=== PATIENT | female | born 1990 | race Caucasian/White ===

== ENCOUNTER 2021-01-11 18:13 | Emergency (ER) | payer BC ==
[2021-01-11] MEDS ORDERED: Bacitracin Oint 1 GM U/D Packet TOP ONE ×2 (18:36→18:56)
[2021-01-11] MEDS ORDERED: Acetaminophen/HYDROcodone 325-5 MG Tab PO ONE (18:36)
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
== END 2021-01-11 19:19 | disposition home or self-care (01) ==
LOC: MW.ED 18:13
DX: T23.251A Burn of second degree of right palm, initial encounter (principal); X19.XXXA Contact with other heat and hot substances, initial encounter
CPT/HCPCS: 16020; 99283; A9270

== ENCOUNTER 2022-04-14 12:26 | Inpatient (IN) | payer BC ==
[2022-04-14] MEDS ORDERED: Misoprostol 200 MCG Tab PO PRN (15:52)
[2022-04-14] MEDS ORDERED: Tranexamic Acid 1,000 MG in Sodium Chloride 0.9% 100 ML IV PRN (15:52)
[2022-04-14] MEDS ORDERED: Sodium Chloride 0.9% 2.5 ML Syringe FLUSH PRN (15:52)
[2022-04-14] MEDS ORDERED: Lidocaine 1% 50 ML MDV INJECT PRN (15:52)
[2022-04-14] MEDS ORDERED: Water For Irrigation,Sterile 1,000 ML Container IRR PRN (15:52)
[2022-04-14] MEDS ORDERED: Sodium Chloride 0.9% 10 ML Syringe FLUSH PRN (15:52)
[2022-04-14] MEDS ORDERED: Sodium Chloride 0.9% 20 ML SDV IV PRN (15:52)
[2022-04-14] MEDS ORDERED: Butorphanol 1 MG/ML SDV IVPUSH PRN (15:52)
[2022-04-14] MEDS ORDERED: Methylergonovine 0.2 MG/1 ML Amp IM PRN (15:52)
[2022-04-14] MEDS ORDERED: Carboprost Tromethamine 250 MCG/1 ML Amp IM PRN (15:52)
[2022-04-14] MEDS ORDERED: Oxytocin/0.9 % Sodium Chloride 30 UNIT/500 ML BAG IV SCH ×2 (16:00→23:30)
[2022-04-14] MEDS ORDERED: ePHEDrine 50 MG/ML SDV IVPUSH PRN ×2 (16:41)
[2022-04-14] MEDS ORDERED: Ropivacaine HCl/PF 400 MG in Premix Bag 1 BAG EPIDUR SCH (16:45)
[2022-04-14] MEDS ORDERED: Phenylephrine HCl In 0.9% NaCl 1 MG/10 ML Vial IVPUSH SCH (16:45)
[2022-04-14] MEDS: Lactated Ringers 1,000 ML IV SCH ×3 (21:42→23:26)
[2022-04-14] MEDS ORDERED: Phenylephrine HCl In 0.9% NaCl 1 MG/10 ML Vial ONE (22:52)
[2022-04-14] MEDS: Phenylephrine HCl In 0.9% NaCl 1 MG/10 ML Vial IVPUSH SCH ×2 (23:17→23:31)
[2022-04-14] MEDS ORDERED: Terbutaline 1 MG/ML SDV SUBCUT PRN (23:28)
[2022-04-15] MEDS ORDERED: Acetaminophen 500 MG Tab PO ONE (01:18)
[2022-04-15] MEDS: Lactated Ringers 1,000 ML IV SCH (03:16)
[2022-04-15] MEDS ORDERED: Ondansetron 4 MG/2 ML SDV IVPUSH PRN ×4 (03:58→09:27)
[2022-04-15] MEDS ORDERED: Azithromycin 500 MG Vial ONE (07:57)
[2022-04-15] MEDS ORDERED: Oxytocin 10 Units/1 ML SDV ONE (08:11)
[2022-04-15] MEDS ORDERED: Ropivacaine 0.5% 5 MG/ML 30 ML SDV ONE (08:11)
[2022-04-15] MEDS ORDERED: Dexamethasone 4 MG/ML 5 ML MDV ONE (08:11)
[2022-04-15] MEDS ORDERED: Morphine PF 10 MG/10 ML SDV ONE (08:11)
[2022-04-15] MEDS ORDERED: Phenylephrine HCl In 0.9% NaCl 1 MG/10 ML Vial ONE (08:11)
[2022-04-15] MEDS ORDERED: Ondansetron 4 MG/2 ML SDV ONE (08:11)
[2022-04-15] MEDS ORDERED: Dexmedetomidine 200 MCG/2 ML SDV ONE (08:11)
[2022-04-15] MEDS ORDERED: ceFAZolin 1 GM Vial ONE (08:11)
[2022-04-15] MEDS ORDERED: methylPREDNISolone Sodium Succinate 40 MG/1 ML SDV ONE (08:26)
[2022-04-15] MEDS ORDERED: Lidocaine 2% 5 ML SDV ONE (08:27)
[2022-04-15] MEDS ORDERED: Ketorolac 30 MG/ML SDV ONE (08:39)
[2022-04-15] MEDS ORDERED: fentaNYL 50 MCG/ML SDV IVPUSH PRN ×2 (08:59)
[2022-04-15] MEDS ORDERED: HYDROmorphone 1 MG/ML Syringe IVPUSH PRN (08:59)
[2022-04-15] MEDS ORDERED: diphenhydrAMINE 50 MG/ML SDV IVPUSH PRN ×2 (08:59→09:27)
[2022-04-15] MEDS ORDERED: Albuterol 0.083% 2.5 MG/3 ML Neb Soln NEB PRN (08:59)
[2022-04-15] MEDS ORDERED: Metoclopramide 10 MG/2 ML SDV IVPUSH PRN (08:59)
[2022-04-15] MEDS ORDERED: Naloxone 0.4 MG/ML SDV IVPUSH PRN (08:59)
[2022-04-15] MEDS ORDERED: Acetaminophen/oxyCODONE 325-5 MG Tab PO PRN ×3 (08:59→09:27)
[2022-04-15] MEDS ORDERED: Morphine 2 MG/ML SYRINGE IVPUSH PRN (08:59)
[2022-04-15] MEDS ORDERED: Methylergonovine 0.2 MG/1 ML Amp IM PRN (09:27)
[2022-04-15] MEDS ORDERED: Lanolin 100% Cream 7 GM Tube TOP PRN (09:27)
[2022-04-15] MEDS ORDERED: Oxytocin 10 Units/1 ML SDV IM PRN (09:27)
[2022-04-15] MEDS ORDERED: Misoprostol 200 MCG Tab RECTAL PRN (09:27)
[2022-04-15] MEDS ORDERED: Tranexamic Acid 1,000 MG in Sodium Chloride 0.9% 100 ML IV PRN (09:27)
[2022-04-15] MEDS ORDERED: Bisacodyl 10 MG Supp RECTAL PRN (09:27)
[2022-04-15] MEDS ORDERED: Lactated Ringers 1,000 ML IV SCH (09:30)
[2022-04-15] MEDS ORDERED: Oxytocin/0.9 % Sodium Chloride 30 UNIT/500 ML BAG IV SCH (09:30)
[2022-04-15] MEDS ORDERED: Acetaminophen 1,000 MG in Premix Bag 1 BAG IV SCH (15:00)
[2022-04-15] MEDS: Ketorolac 30 MG/ML SDV IVPUSH SCH ×2 (16:16→22:15)
[2022-04-15] MEDS: Docusate Sodium 100 MG Cap PO SCH (22:21)
[2022-04-16] MEDS: Ketorolac 30 MG/ML SDV IVPUSH SCH ×3 (04:23→09:40)
[2022-04-16] MEDS: Levothyroxine 50 MCG Tab **OWN MED PO SCH (07:22)
[2022-04-16] MEDS: BUPROPION 300 MG PO SCH (09:36)
[2022-04-16] MEDS: Docusate Sodium 100 MG Cap PO SCH ×2 (09:36→22:57)
[2022-04-16] MEDS: Ibuprofen 800 MG Tab PO PRN (17:40)
[2022-04-17] MEDS: Ibuprofen 800 MG Tab PO PRN ×2 (04:12→14:26)
[2022-04-17] MEDS: Levothyroxine 50 MCG Tab **OWN MED PO SCH (08:01)
[2022-04-17] MEDS: BUPROPION 300 MG PO SCH (09:01)
[2022-04-17] MEDS: Docusate Sodium 100 MG Cap PO SCH (09:01)
[2022-04-17] MEDS ORDERED: Acetaminophen 500 MG Tab PO PRN (11:12)
== END 2022-04-17 15:27 | disposition home or self-care (01) | DRG 540 ==
LOC: MW.OBCHECK 12:26 → MW.OB 12:28 → MW.OBCHECK 15:52 → OBSVTOIN 04-15 07:58 → MW.OB 04-15 16:17
PROVIDERS: ADMIT Obstetrics & Gynecology; ATTEND Obstetrics & Gynecology
PROC: 10D00Z1 Extraction of Products of Conception, Low, Open Approach (ICD-10-PCS; principal; 2022-04-15)
PROC: 3E0R3BZ Introduction of Anesthetic Agent into Spinal Canal, Percutaneous Approach (ICD-10-PCS; 2022-04-15)
PROC: 00HU33Z Insertion of Infusion Device into Spinal Canal, Percutaneous Approach (ICD-10-PCS; 2022-04-15)
DX: O62.1 Secondary uterine inertia (principal); O99.284 Endocrine, nutritional and metabolic diseases complicating childbirth; Z3A.38 38 weeks gestation of pregnancy; Z37.0 Single live birth; E03.9 Hypothyroidism, unspecified; O45.93 Premature separation of placenta, unspecified, third trimester
CPT/HCPCS: 01961; 01967; 36415; 51702; 59025; 64488; 82803; 84112; 85014; 85018; 85027; 86592; 86850; 86900; 86901; A9270-GY; J0131; J0456; J0690; J1100; J1200; J1790; J1885; J2274; J2405; J2590; J2795; J2920; J3105; J7120; U0002